=== PATIENT | female | born 1985 | race Caucasian/White ===

== ENCOUNTER 2016-06-09 10:59 | Day surgery (SDC) | payer OTHER ==
[~2016-06-09] VITALS: Ht 167.6 cm; Wt 73.6 kg
[2016-06-09] VITALS (10 sets, daily range): BP systolic 110–130; BP diastolic 58–83; PULSE 60–83; RESP 10–18; O2SAT 97–100
--- NOTE | 2016-06-09 07:17 | PCM.HPANE ---
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) Medications Hypertension Medication: No Home Meds Incl Beta Estephania: No Reported Medications Cephalexin 500 Mg [id number] Mg PO QID #40 TABLET Ref 0 06/08/16 History HEENT History: Denies:: Abnormal Airway Cataracts Dysphagia Glaucoma Hearing Problem Sinus Problem TMJ Cardiovascular History: Denies:: AICD Abdominal Aortic Aneurism Atrial Fibrillation Heart Murmur Hypertension Irregular Heartbeat Pacemaker Peripheral Vascular Hx of Respiratory Problem?: No Respiratory History: Denies:: Asthma COPD Emphysema Oxygen Administration Pneumonia Tuberculosis Use of C-PAP Machine Use of Inhalers / NEBS Hx Neurologic Problems?: No Neurological History: Denies:: Alzheimer's Disease CVA Headaches Multiple Sclerosis Parkinson's Disease Seizures TIA Hx of GI Problems?: Yes Gastrointestinal History: Positive for:: Heartburn (occasional, not consistent) Denies:: Cirrhosis Gall Bladder Disease Gastroesphageal Reflux Hepatitis Hiatal Hernia Hx of Problems?: No Genitourinary History: Denies:: Kidney Stones Urinary Tract Infection Female Hx: Denies:: Currently Problems with Breasts? Skin History: Positive for:: History Skin Disorders? (left thumb wound- current admission problem) Hx Musculoskeletal Problems?: Yes Musculoskeletal History: Positive for:: Musculoskeletal Trauma (left thumb wound current admission problem) Denies:: Fibromyalgia Joint Replacement Myasthenia Gravis Osteoarthritis Rheumatoid Arthritis Hx of Psycho/Social Problems?: No Psycho Social History: Denies:: Anxiety Hx Depression Hx Surgeries?: No (no prior) Hx Any Other Health Problems?: Yes Other History: Denies:: Cancer Thyroid Disease (suspected - but never tested) History Blood Transfusions: Positive for:: Accept Blood Products? Denies:: Blood Transfusions Hx Diabetes: No Hx Alcohol Use: NoHx Substance Use: NoHave You Smoked inLast 12 mo: No Stop/Bang Treated for Sleep Apnea?: No Do You Have a CPAP Machine?: No S-Snoring: Do You Snore Loudly: No T-Tired: feel tired, fatigued: No O-Obsered: Observed not breath: No P-Blood Pressure: treated: No B- Body Mass Index > 35 kg/m2: No A- Age over 50: No N- Neck Large Circumference: No G- Gender Male: No KATARZYNA Total Score: 0 KATARZYNA Risk Assessment: Low Risk, <3 Yes Risk Assessment Category Category 1A: Patient has history of documented sleep apnea, and HAS NOT received any narcotic, sedative or anesthesia administration during this stay. Category 1B: Patient has history of documented sleep apnea, and HAS received any narcotic , sedative or anesthesia administration during this stay Category 2: Patient has SUSPECTED Obstructive Sleep Apnea, and HAS received any narcotic , sedative or anesthesia administration during this stay. Category 3: Patient has SUSPECTED Obstructive Sleep Apnea and HAS NOT received narcotic, sedative or anesthesia administration during this stay. Category 4: Outpatient in Procedural Areas with known sleep apnea or who screen positive for High Risk via the STOP/BANG questionnaire. Exam Exam General Appearance: Alert, Oriented X3, Cooperative, No Acute Distress HEENT/AIRWAY: MP 2 Lungs: Clear to Auscultation, Normal Air Movement Heart: Exam Unremarkable, Regular Rate/Rhythm, No Murmurs/Rubs/Gallops Plan Impression Patient chart reviewed, patient interviewed and anesthestic plan with risks, benefits, and alternatives discussed, and informed consent obtained. ASA Physical Status: ASA1 Normal Healthy Anesthetic Plan: GA Bene/Risks/Altern/Consents: Yes HP Complete Prior to Induction: Yes Nabeel Nichols MD Jun 09, 2016 07:17
[~2016-06-09 10:59] MED LIST: CEPH500T PO; CeFAZolin Inj 2 GM in IV Premix 1 EACH IV ONE; Lactated Ringer's 1,000 ML IV SCH
[2016-06-09] MEDS ORDERED: Ketamine 10 mg/mL 20 mL Inj ONE (11:00)
[2016-06-09] MEDS ORDERED: Ondansetron 2 mg/mL 2 mL Inj ONE (11:00)
[2016-06-09] MEDS ORDERED: Dexamethasone 4 mg/mL Inj ONE (11:00)
[2016-06-09] MEDS ORDERED: Propofol 10,000 mCg/mL 20 mL Inj ONE (11:00)
[2016-06-09] MEDS ORDERED: CeFAZolin Inj 2 gm / 50mL D5W IV ONE (11:23)
[2016-06-09] MEDS ORDERED: Lactated Ringer's 1,000 ML IV ONE ×2 (11:42→16:30)
[2016-06-09] MEDS ORDERED: Lidocaine 1%-Epi 1:100,000 20 mL Inj NERVEBLOCK ONE (13:34)
[2016-06-09] MEDS ORDERED: Ondansetron 2 mg/mL 2 mL Inj IVPUSH PRN (13:45)
[2016-06-09] MEDS ORDERED: Dexamethasone 4 mg/mL Inj IVPUSH PRN (13:45)
[2016-06-09] MEDS ORDERED: MetoCLOpramide 5 mg/mL 2 mL Inj IVPUSH PRN (13:45)
[2016-06-09] MEDS ORDERED: Lactated Ringer's 500 ML IV PRN (13:45)
[2016-06-09] MEDS ORDERED: EPHEDrine Sulfate 50 mg/mL Inj IVPUSH PRN (13:45)
[2016-06-09] MEDS ORDERED: Lactated Ringer's 1,000 ML IV SCH (13:45)
[2016-06-09] MEDS ORDERED: Phenylephrine 10,000 mCg/mL Inj IVPUSH PRN (13:45)
[2016-06-09] MEDS: fentaNYL-PF 50 mCg/mL 2 mL Inj IVPUSH PRN ×4 (14:19→15:40)
[2016-06-09] MEDS ORDERED: HYDROmorphone 0.5 mg/0.5 mL iSecure Syringe ONE (14:54)
[2016-06-09] MEDS: HYDROmorphone 1 mg/mL Inj IVPUSH PRN ×2 (15:20→15:40)
--- NOTE | 2016-06-09 15:59 | PCM.ANEP1 ---
Post Anesthesia Phase 1 PACU Phase 1 Assessment Vital Signs Vital Signs Date Time Temp Pulse Resp B/P Pulse Ox O2 Delivery O2 Flow Rate FiO2 06/09/16 15:00 60 18 123/74 100 Room Air 06/09/16 14:40 36.6 67 16 123/70 97 Room Air 06/09/16 14:35 70 17 123/74 98 Room Air 06/09/16 14:30 36.4 65 10 122/75 99 Room Air 06/09/16 14:20 72 14 130/83 99 Room Air 06/09/16 14:15 71 15 115/64 97 Room Air 06/09/16 14:10 71 16 122/65 100 Room Air 06/09/16 14:05 36.3 83 15 116/63 98 Room Air 06/09/16 11:41 36.6 60 14 110/58 100 Room Air Anesthetic Administered: GA Level of Alertness: Awake, talking EID's with Equal Strength: Yes Pain: No Nausea or Vomiting: No Oxygen Delivery: Nasal Cannula Lungs: Clear to Auscultation, Normal Air Movement Dermatome Level: Full Sensation Nabeel Nichols MD Jun 09, 2016 15:59
--- NOTE | 2016-06-09 15:59 | PCM.ANEP2 ---
Post Anesthesia Evaluation ASA/CMS Post Anesthesia VS in Patient's Normal Range?: Yes Resp Stable; Airway Patent?: Yes CV Function & Hydration Stable: Yes Mental Status Recovered?: Yes Pain control Satisfactory?: Yes N/V Control Satisfactory?: Yes Nabeel Nichols MD Jun 09, 2016 15:59
[2016-06-09] MEDS: HYDROcodone-APAP 5-325 mg Tablet PO PRN ×2 (16:10→16:50)
--- NOTE | 2016-06-10 13:30 | OP ---
[address] [address] OPERATIVE REPORT PATIENT: DOROTA ROMO : 1985 MR#: [id number] ADMIT: 06/09/2016 JOB ID: [id number] CORRECTED REPORT: DATE OF SURGERY: 06/09/2016 PREOPERATIVE DIAGNOSIS(ES): Left thumb open proximal phalanx base fracture. POSTOPERATIVE DIAGNOSIS(ES): Left thumb open proximal phalanx base fracture. PROCEDURE: Open reduction, internal fixation of left thumb proximal phalanx base fracture. SURGEON: Jadon Kaplan D.O. STEREOTYPE CASTER: Loraine Gerber PA-C. ANESTHESIA: General. HISTORY: The patient is a pleasant, 31-year-old female that slammed her left hand and thumb along a side of a wood splitter. She sustained an open wound as well as a displaced proximal phalanx base fracture. There is questionable extensor tendon involvement due to the location and her lack of extensor tendon function. She also had some paresthesias at the time of injury and recently was seen at an outlying facility and referred here for further evaluation and treatment. Upon presentation, she did demonstrate intact two-point discrimination. The dorsal incision was directly overlying the path of the extensor pollicis longus. She did demonstrate extended proximal phalanx base fracture. Discussed with patient the risks, benefits, and indications to proceed with an exploration of the thumb with open reduction, internal fixation of the proximal phalanx base fracture with possible repair of the extensor pollicis longus. She understood the risks include, but are not limited to, neurovascular injury, tendon injury, infection, failure of fixation, stiffness, persistent pain which may require further intervention. The patient had all questions answered. Consent was signed and placed in the chart. PROCEDURE IN DETAIL: The patient was brought to the operative suite and placed supine on the operating table. Surgical time-out was performed. Everyone in the room was in agreement. After appropriate anesthesia was obtained, a left upper arm tourniquet was applied and the left upper extremity was prepped and draped in a sterile fashion. Left upper extremity was then exsanguinated, tourniquet elevated to 250 mmHg. This patient's transverse dorsal ulnar incision was opened up by removing the sutures and then extended in curvilinear fashion, both proximally and distally. Dissection was carried down to the overlying extensor tendon. The extensor nolan and the extensor pollicis longus was found to be fully intact within the zone of injury. The fracture site was identified. A manual reduction was then performed. The patient's thumb was fixed with cross pinning through the base in an antegrade fashion utilizing two 0.045 inch K-wires. Multiple views on fluoroscopy were utilized to verify anatomic reduction and appropriate placement of the K-wires. Further irrigation was performed followed by closure of the skin with 5-0 nylon in a simple interrupted fashion. Both K-wires were then bent outside the skin and cut short. Pin covers were utilized and the patient placed into a well-padded well-molded thumb spica splint. ESTIMATED BLOOD LOSS: Less than 5 cc. COMPLICATIONS: None. DISPOSITION: The patient tolerated the procedure well. Anesthesia was reversed. The patient was transferred back to recovery. IMPLANTS: Two 0.045 inch K-wires. POSTOPERATIVE PLAN: The patient will follow up in the office in two weeks. I will transition her in that time into a thumb spica cast for two additional weeks prior to removing the pins and having her start initiating range of motion. Corrected by GS 06/13/16 at 7:05am
--- NOTE | 2016-06-10 13:34 | OP ---
[address] [address] OPERATIVE REPORT PATIENT: DOROTA ROMO : 1985 MR#: [id number] ADMIT: 06/09/2016 JOB ID: [id number] DATE OF SURGERY: 06/09/2016 SURGEON: Jadon Kaplan DO. PREOPERATIVE DIAGNOSIS(ES): POSTOPERATIVE DIAGNOSIS(ES): CONTINUATION: The patient's thumb was fixed with cross pinning through the base in an antegrade fashion utilizing two 0.045 inch K-wires. Multiple views on fluoroscopy were utilized to verify anatomic reduction and appropriate placement of the K-wires. Further irrigation was performed followed by closure of the skin with 5-0 nylon in a simple interrupted fashion. Both K-wires were then bent outside the skin and cut short. Pin covers were utilized and the patient placed into a well-padded well-molded thumb spica splint. ESTIMATED BLOOD LOSS: Less than 5 cc. COMPLICATIONS: None. DISPOSITION: The patient tolerated the procedure well. Anesthesia was reversed. The patient was transferred back to recovery. IMPLANTS: Two 0.045 inch K-wires. POSTOPERATIVE PLAN: The patient will follow up in the office in two weeks. I will transition her in that time into a thumb spica cast for two additional weeks prior to removing the pins and having her start initiating range of motion.
== END 2016-06-09 23:59 | disposition home or self-care (01) ==
LOC: EDSEX → SAS 10:59
PROVIDERS: ATTEND Orthopaedic Surgery
DX: S62.512B Displaced fracture of proximal phalanx of left thumb, initial encounter for open fracture (principal); W31.2XXA Contact with powered woodworking and forming machines, initial encounter; Y93.89 Activity, other specified; Y92.096 Garden or yard of other non-institutional residence as the place of occurrence of the external cause; Y99.8 Other external cause status; R12 Heartburn
CPT/HCPCS: 26735; J0690; J1100; J1170; J2250; J2405; J2765; J3010; J7120

== ENCOUNTER 2016-07-11 11:00 | Emergency (ER) | payer OTHER ==
[~2016-07-11] VITALS: Ht 167.6 cm; Wt 72.7 kg
[~2016-07-11 11:00] MED LIST changes: -CeFAZolin Inj 2 GM in IV Premix 1 EACH IV ONE; -Lactated Ringer's 1,000 ML IV SCH
[2016-07-11 11:13] VITALS: BP 104/63; PULSE 77; RESP 16; O2SAT 100
--- NOTE | 2016-07-11 12:15 | DRSVH ---
PROCEDURE: X-RAY FINGERS, TWO VIEWS INDICATIONS: lt thumb/recent fx and surgery TECHNIQUE: AP hand, 3 views of the left 1st digit acquired. COMPARISON: [facility], CR, XR FINGER(S) LT 2VW, 06/07/2016, 14:41. [facility], CR, XR FINGER(S) LT 2VW, 06/22/2016, 13:02. [facility], CR, XR FINGER(S) LT 2VW, , 14:54. FINDINGS: Bones: There is interval removal of 2 K wires from the 1st proximal phalanx. A nondisplaced transve rse fracture of the 1st proximal phalanx is redemonstrated. No definite change in alignment. Fractu re line remains visible with mild partial bridging callus. Soft tissues: There is an overlying cast which limits evaluation of the soft tissues. IMPRESSION: 1. 1st proximal phalanx fracture redemonstrated with interval K wire removal. No definite change in alignment. Dictated by: Jayce Elizondo M.D. on 07/11/2016 at 12:08 Approved by: Jayce Elizondo M.D. on 07/11/2016 at 12:14
--- NOTE | 2016-07-11 12:53 | ED.REPORT ---
HPI-Extremity Problem Upper Date of Service July 11, 2016 ED Provider: Sunday Aguilar DO 31 year old female presents to the ER accompanied by her and son complaining of left thumb pain status post falling on her outstretched hand while climbing out of an excavator earlier today. She had previously fractured the affected thumb and had it surgically repaired by Dr. Kaplan, orthopedics, who removed the pins six days ago. Patient is concerned for re-fracture. She denies LOC, head/neck injuries, numbness/weakness, and any other trauma secondary to the fall. Nursing Notes Stated Complaint: LEFT HAND INJURY Chief Complaint: Extremity Trauma Nursing Notes Reviewed: Yes Allergies: Uncoded Allergies: MANGOES (Allergy, Unknown, facial swelling, 06/08/16) Scheduled Cephalexin (Cephalexin) 500 Mg Tablet 500 MG PO QID General Time Seen by MD: 12:52 Chief Complaint Finger injury left 1 Hx Obtained From: Patient Arrived By: Walk-in Onset Occurred: 1 - 4 hours ago Symptom Duration: Since onset Caused by: Accidental, Fall on ground Context: Occurred at: Home injury Location: : Finger left 1 Quality: Painful Severity: Current: Moderate Severity: Maximum: Moderate Pertinent Negative: Pt denies other symptoms Exacerbated by: Range of motion, Movement Pertinent Negative: Relieved by nothing Similar Sx Previous: Yes Past Medical History Past Medical History Left thumb fracture Past Surgical History Left thumb repair, Dr. Kaplan Smoking History Unknown if Ever Smoker Social History Other Social History: Good social support, Ambulatory Status Independent Review of Systems Musculoskeletal: Reports: Extremity pain (Left Thumb), Denies: Back pain, Joint pain, Lumbar pain, Neck pain, Thoracic pain Neurologic: Denies: Headache, Syncope Complete sys rev & neg: except as marked. Physical Exam Initial Vital Signs Vital Signs (First) Date Time Temp Pulse Resp B/P Pulse Ox O2 Delivery O2 Flow Rate FiO2 07/11/16 11:13 36.3 77 16 104/63 100 Initial VS: Reviewed Head / Eyes: Atraumatic, Normocephalic Neck: Supple, Non-tender, Full range of motion Lower Extremities: Vascular intact, Neuro intact, No swelling, No tenderness Skin: Warm, Dry, No cyanosis Neurologic: Alert, Oriented, Nonfocal Psychiatric: Mood/affect normal, Behavior normal, Normal thought content General/Constitutional: Awake, Alert, Well appearing, Well developed, Well nourished Wrist / Hand: Neurologic intact, Vascular intact Left hand casted. Normal capillary refill and sensation. Pain with movement of the tip of the left thumb. Interpretation & Diagnostics X-Ray Interpretation Xray Interpretation: IMPRESSION: 1. 1st proximal phalanx fracture redemonstrated with interval K wire removal. No definite change in alignment. Dictated by: Jayce Elizondo M.D. on 07/11/2016 at 12:08 Approved by: Jayce Elizondo M.D. on 07/11/2016 at 12:14 X-Ray Ordered: Hand left Interpretation / Wet Read by: Interpret - Radiologist Procedures Splint Application - Fx Mgt Splint Application- Fx Mgt: Thumb spica cast removed. Time: 13:29 Procedure Performed by: ED physician, Karate Teacher Precise Anatomic Location: Left Thumb Thumb spica Definitive Fracture Care: Splint Post-Procedure / Complications: Cap refill normal, Post splint vascular nl, Post splint neuro nl, Condition improved, Tolerated procedure well, Patient stable Splint Post-Application Eval Extremity Condition: Cap refill < 2 sec, Distal sensation intact, Distal motor Intact, No compartment syndrome Re-Eval/Medical Decision Med Decision/Clinical Course Suspect reinjury of the first proximal phalanx. Thumb spica splint will be applied fully immobilizes the thumb. Will recommend outpatient follow-up with orthopedics Counseled Regarding: Diagnosis, Need for follow-up, When/why to return to ED Discharge & Departure Impression: Primary Impression: Fracture of proximal phalanx of left hand Disposition: Home Discharge Condition All VS Reviewed: Yes Condition: Stable Additional Instructions: A new splint has been off applied. Follow-up with your orthopedist in about 1 week for repeat evaluation. Return to ER as needed for worsening pain or other concerns. Referrals: Dean Tyler MD (PCP) Scribe Attestation Portions of this note were transcribed by Seferino Edgar. I, Dr. Aguilar, personally performed the history, physical exam and medical decision-making; I reviewed and confirmed the accuracy of the information in the transcribed note. Signed by: Hi Ocampo, 07/11/2016 and *time* copies to: Dean Tyler MD, Timothy S DO July 11, 2016 12:53 SEFERINO EDGAR 8, 2017 12:59
[2016-07-11 14:14] VITALS: BP 119/72; PULSE 70; RESP 20; O2SAT 98
== END 2016-07-11 14:17 | disposition home or self-care (01) ==
LOC: SED 11:00
DX: S62.512A Displaced fracture of proximal phalanx of left thumb, initial encounter for closed fracture (principal); V68.4XXA Person boarding or alighting a heavy transport vehicle injured in noncollision transport accident, initial encounter; Y92.009 Unspecified place in unspecified non-institutional (private) residence as the place of occurrence of the external cause; Y93.89 Activity, other specified; Y99.8 Other external cause status; Z87.828 Personal history of other (healed) physical injury and trauma